=== PATIENT | female | born 1975 | race Two or more races ===

== ENCOUNTER 2022-04-08 09:25 | Emergency (ER) | payer MEDICAID ==
[~2022-04-08] VITALS: Ht 167.6 cm; Wt 98.0 kg
[2022-04-08] MEDS ORDERED: CYCLOBENZAPRINE 10MG TABLET PO ONE (14:15)
[2022-04-08] MEDS ORDERED: KETOROLAC 30MG/ML VIAL IM ONE (14:15)
[2022-04-08] MEDS ORDERED: NAPR-1176 MT (14:16)
[2022-04-08] MEDS ORDERED: CYCL10TA21 MT (14:16)
[2022-04-08 14:25] VITALS: BP 178/104
== END 2022-04-08 14:36 | disposition home or self-care (01) ==
LOC: ER 09:25
DX: M54.50 Low back pain, unspecified (principal); Z98.890 Other specified postprocedural states
CPT/HCPCS: 72100; 81025; 96372; 99283; J1885; Z7610